=== PATIENT | female | born 1965 | race Caucasian/White ===

== ENCOUNTER 2017-01-18 15:11 | Emergency (ER) | payer OTHER ==
[~2017-01-18] VITALS: Ht 157.5 cm; Wt 96.8 kg
[~2017-01-18 15:11] MED LIST: LEVO50TA83 PO; LORA1TAB PO
[2017-01-18 15:14] VITALS: Ht 157.5 cm; Wt 96.8 kg
--- NOTE | 2017-01-18 15:43 | ERD ---
ER Documentation Chief Complaint Chief Complaint Complains of lower pelvic pain x 3 days HPI This is a 51-year-old female who presents to the emergency department today complaining of heavy vaginal bleeding that started last night. Patient states that in May she had a Nexplanon implant as she was having some heavy periods and it may have it removed as it was not working for her. She states that her last menstrual period was December 16. She states that she took ibuprofen last night but has a lot of pelvic pain. She states that she has been having to use 2 pads every 30 minutes. States that she does not currently have an BUSINESS DEVELOPMENT MANAGER at this time. States she does have some mild pain with urination. States she also has some back pain. Denies any fevers or chills ROS All systems reviewed and are negative except as per history of present illness. Medications Home Meds Active Scripts Acetaminophen* (Tylophen*) 500 Mg Capsule, 1 CAP PO Q6H Y for PAIN AND OR ELEVATED TEMP, #30 CAP Prov:CHARLEY ARZATE PA-C 01/18/17 Naproxen* (Naprosyn*) 500 Mg Tablet, 500 MG PO BID Y for PAIN AND/OR INFLAMMATION, #30 TAB Prov:CHARLEY ARZATE PA-C 01/18/17 Lorazepam* (Lorazepam*) 1 Mg Tablet, 1 MG PO Q8H Y for ANXIETY, #20 Prov:JEANNETTE SANCHEZ 10/11/14 Reported Medications Levothyroxine Sodium* (Synthroid*) 50 Mcg Tablet, 50 MCG PO DAILY 10/09/12 Allergies Allergies: Coded Allergies: No Known Allergy (Unverified , 10/10/14) PMhx/Soc History of Surgery: Yes (removal of kidney stone, TUBAL LIGATION, BLADDER SURGERY) Anesthesia Reaction: No Hx Neurological Disorder: No Hx Respiratory Disorders: No Hx Cardiac Disorders: Yes (HEART MURMUR) Hx Psychiatric Problems: No Hx Miscellaneous Medical Probl: Yes (HYPOTHYROID) Hx Alcohol Use: No Hx Substance Use: No Hx Tobacco Use: No Physical Exam Vitals Vital Signs Date Time Temp Pulse Resp B/P Pulse Ox O2 Delivery O2 Flow Rate FiO2 01/18/17 15:14 98.6 80 20 136/77 98 Physical Exam Const: obese, NAD Head: Atraumatic Eyes: Normal Conjunctiva ENT: Normal External Ears, Nose and Mouth. Neck: Full range of motion..~ No meningismus. Resp: Clear to auscultation bilaterally Cardio: Regular rate and rhythm, no murmurs Abd: Soft, pelvic pain. No tenderness to McBurney's. No upper abdominal pain., non distended. Normal bowel sounds Skin: No petechiae or rashes Back: No midline or flank tenderness Ext: No cyanosis, or edema Neur: Awake and alert Psych: Normal Mood and Affect Result Diagram: 01/18/17 1626 01/18/17 1626 Results 24 hrs Laboratory Tests Test 01/18/17 16:10 01/18/17 16:26 Urine Color YELLOW Urine Clarity SLIGHTLY CLOUDY Urine pH 5.0 Urine Specific [place] 1.018 Urine Ketones NEGATIVEmg/dL Urine Nitrite NEGATIVEmg/dL Urine Bilirubin NEGATIVEmg/dL Urine Urobilinogen NEGATIVEmg/dL Urine Leukocyte Esterase NEGATIVELeu/ul Urine Microscopic RBC > 182/HPF Urine Microscopic WBC 0/HPF Urine Hemoglobin 3+mg/dL Urine Glucose NEGATIVEmg/dL Urine Total Protein 1+mg/dl White Blood Count 8.110^3/ul Red Blood Count 4.3610^6/ul Hemoglobin 13.2g/dl Hematocrit 40.6% Mean Corpuscular Volume 93.1fl Mean Corpuscular Hemoglobin 30.3pg Mean Corpuscular Hemoglobin Concent 32.5g/dl Red Cell Distribution Width 11.9% Platelet Count 61772^3/UL Mean Platelet Volume 11.3fl Neutrophils % 65.2% Lymphocytes % 25.7% Monocytes % 7.3% Eosinophils % 1.1% Basophils % 0.5% Nucleated Red Blood Cells % 0.0/100WBC Neutrophils # 5.310^3/ul Lymphocytes # 2.110^3/ul Monocytes # 0.610^3/ul Eosinophils # 0.110^3/ul Basophils # 0.010^3/ul Nucleated Red Blood Cells # 0.010^3/ul Sodium Level 142mmol/L Potassium Level 4.6mmol/L Chloride Level 105mmol/L Carbon Dioxide Level 29mmol/L Anion Gap 13 Blood Urea Nitrogen 17mg/dl Creatinine 0.77mg/dl Glucose Level 94mg/dl Calcium Level 9.1mg/dl Total Bilirubin 0.5mg/dl Direct Bilirubin 0.00mg/dl Indirect Bilirubin 0.5mg/dl Aspartate Amino Transf (AST/SGOT) 15IU/L Alanine Aminotransferase (ALT/SGPT) 27IU/L Alkaline Phosphatase 57IU/L Total Protein 6.9g/dl Albumin 4.0g/dl Globulin 2.90g/dl Albumin/Globulin Ratio 1.37 Lipase 96U/L Current Medications Medications (Trade) Dose Ordered Sig/Kayla Route PRN Reason Start Time Stop Time Status Last Admin Dose Admin Ketorolac Tromethamine (Toradol) 30 mg ONCE STAT IV 01/18/17 15:53 01/18/17 15:55 DC 01/18/17 16:18 DIAGNOSTIC IMAGING REPORT Patient: ZOË BUSH : 1965 Age: 51 Sex: F MR #: [id number] DOS: 01/18/17 0000 Ordering MD: CHARLEY ARZATE PA-C Location: [facility] Room/Bed: PROCEDURE: Ultrasound pelvis. CLINICAL INDICATION: Pelvic pain and menorrhagia. TECHNIQUE: Multiple sonographic images of the pelvis were obtained utilizing a transabdominal and transvaginal technique. COMPARISON: CT dated 07/30/2014. FINDINGS: Uterus: 10.0 x 5.1 x 5.2 cm. Heterogeneous in echogenicity with multiple fibroids, the largest in the posterior body measuring 2 cm. Endometrium: 8 mm in thickness. Unremarkable in appearance. Right ovary: Not identified. Left ovary: 4.7 x 2.9 x 4.1 cm. Cystic lesion with diffuse low level internal echoes measuring 3.6 x 2.6 x 3.5 cm. Normal blood flow. Adnexa: No masses or sonographic abnormality. Free fluid: None. IMPRESSION: 1. Leiomyomatous uterus. 2. Left ovarian lesion measuring 3.6 cm which may reflect a hemorrhagic cyst or endometrioma. Follow-up ultrasound in 6 or 12 weeks is recommended. Follow- up prior to that time as clinically warranted. RPTAT: HLBP .Yousuf Ennis MD, Date Time Electronically viewed and signed by .Yousuf Ennis MD, MD on 01/18/2017 17:11 .P/ CC: CHARLEY ARZATE PA-C Procedures/[facility] This is a 51-year-old female who presents to the emergency department today complaining of heavy vaginal bleeding that started last night. Patient has been having irregular periods for quite some time now and had had a what patient appears to describe the Nexplanon implant in her arm that was removed in July. Patient had diffuse lower pelvic pain on physical exam and therefore did obtain laboratory workup as well as a pelvic ultrasound. Laboratory workup shows no elevated white blood cell count. She is not anemic. Her hemoglobin is 13.2. Her platelets are within normal limits. Electrolytes are within normal limits. Glucose is within normal limits. Liver enzymes are within normal limits. Lipase is within normal limits. UA is negative for infection. There are greater than 182 red blood cells. urine test is negative Pelvic US shows a leiomyomatosis uterus. There is a left ovarian lesion measuring 3.6 cm which may reflect a hemorrhagic cyst or endometrioma. A follow -up ultrasound in 6-12 weeks is recommended. There are no adnexal masses. There is no free fluid. There are multiple fibroids the largest measuring 2 cm. Symptoms at this time is consistent with pelvic pain and heavy vaginal bleeding likely secondary to fibroids. Low suspicion for ectopic , tubo- ovarian abscess, ovarian torsion, acute surgical abdomen. Patient indicated that she was going through several pads an hour however her hemoglobin is well within normal limits and there is no indication for transfusion at this time. Patient was given Toradol here in the emergency department and reported feeling significantly better. Patient was given a prescription for Naprosyn and Tylenol for home. I have explained all results to the patient and her . I have explained to her that she does need to make an appointment with her primary care doctor for referral to BUSINESS DEVELOPMENT MANAGER. Patient had been unhappy with her previous BUSINESS DEVELOPMENT MANAGER have given her a list of resources. At this time the patient is stable for discharge and outpatient management. Patient should follow up with their PCP in the next 1-2 days. They may return to the emergency department sooner for any persistent or worsening of symptoms. Patient understood and agreed with the plan. Discussed the patient with Dr. Jarrett and he is in agreement with the paln. Departure Diagnosis: Primary Impression: Pelvic pain Additional Impression: Fibroids Uterine leiomyoma location: unspecified location Qualified Code: D25.9 - Uterine leiomyoma, unspecified location Condition: CHARLEY Alatorre PA-C Jan 18, 2017 15:43
[2017-01-18] MEDS ORDERED: KETOROLAC 30 MG INJ IV STA (15:53)
[2017-01-18 16:37] LABS: BASOPHILS % 0.5 % (0.0-2.0); EOSINOPHILS # 0.1 10^3/ul (0.0-0.5); EOSINOPHILS % 1.1 % (0.0-7.0); HEMATOCRIT 40.6 % (37.0-47.0); HEMOGLOBIN 13.2 g/dl (12.0-16.0); LYMPHOCYTES # 2.1 10^3/ul (0.8-2.9); LYMPHOCYTES % 25.7 % (15.0-51.0); MEAN CORPUSCULAR HEMOGLOBIN 30.3 pg (29.0-33.0); MEAN CORPUSCULAR HGB CONC 32.5 g/dl (32.0-37.0); MEAN CORPUSCULAR VOLUME 93.1 fl (82.0-101.0); MEAN PLATELET VOLUME 11.3 fl (7.4-10.4); MONOCYTE # 0.6 10^3/ul (0.3-0.9); MONOCYTES % 7.3 % (0.0-11.0); NEUTROPHIL # 5.3 10^3/ul (1.6-7.5); NEUTROPHILS % 65.2 % (39.0-77.0); PLATELET COUNT 245 10^3/UL (140-415); RED BLOOD COUNT 4.36 10^6/ul (4.20-5.40); RED CELL DISTRIBUTION WIDTH 11.9 % (11.5-14.5); WHITE BLOOD COUNT 8.1 10^3/ul (4.8-10.8)
[2017-01-18 16:47] LABS: ADD UMIC YES; UR ASCORBIC ACID 40 mg/dL (NEGATIVE); UR BILIRUBIN (Dip) NEGATIVE (NEGATIVE); UR BLOOD (Dip) 3+ mg/dL (NEGATIVE); UR CLARITY SLIGHTLY CLOUDY (CLEAR); UR COLOR YELLOW (YELLOW); UR GLUCOSE (Dip) NEGATIVE (NEGATIVE); UR KETONES (Dip) NEGATIVE (NEGATIVE); UR LEUKOCYTE ESTERASE (Dip) NEGATIVE Leu/ul (NEGATIVE); UR NITRITE (Dip) NEGATIVE (NEGATIVE); UR RBC > 182 /HPF (0-5); UR SPECIFIC GRAVITY (Dip) 1.018 (1.003-1.030); UR TOTAL PROTEIN (Dip) 1+ mg/dl (NEGATIVE); UR UROBILINOGEN (Dip) NEGATIVE (NEGATIVE)
[2017-01-18 16:59] LABS: ALBUMIN/GLOBULIN RATIO 1.37; BILIRUBIN,INDIRECT 0.5 mg/dl (0-1.1); BILIRUBIN,TOTAL 0.5 mg/dl (0.2-1.3); CALCIUM 9.1 mg/dl (8.4-10.2); CREATININE 0.77 mg/dl (0.44-1.00); POTASSIUM 4.6 mmol/L (3.5-5.1); TOTAL PROTEIN 6.9 g/dl (6.1-8.1)
--- NOTE | 2017-01-18 17:12 | RADRPT ---
PROCEDURE: Ultrasound pelvis. CLINICAL INDICATION: Pelvic pain and menorrhagia. TECHNIQUE: Multiple sonographic images of the pelvis were obtained utilizing a transabdominal and transvaginal technique. COMPARISON: CT dated 07/30/2014. FINDINGS: Uterus: 10.0 x 5.1 x 5.2 cm. Heterogeneous in echogenicity with multiple fibroids, the largest in th e posterior body measuring 2 cm. Endometrium: 8 mm in thickness. Unremarkable in appearance. Right ovary: Not identified. Left ovary: 4.7 x 2.9 x 4.1 cm. Cystic lesion with diffuse low level internal echoes measuring 3.6 x 2.6 x 3.5 cm. Normal blood flow. Adnexa: No masses or sonographic abnormality. Free fluid: None. IMPRESSION: 1. Leiomyomatous uterus. 2. Left ovarian lesion measuring 3.6 cm which may reflect a hemorrhagic cyst or endometrioma. Follo w-up ultrasound in 6 or 12 weeks is recommended. Follow-up prior to that time as clinically warrante d. RPTAT: HLBP .Yousuf Ennis MD, MD Date Time Electronically viewed and signed by .Yousuf Ennis MD, MD on 01/18/2017 17:11 .P/
[2017-01-18] MEDS ORDERED: ACET500C5 PO (18:07)
[2017-01-18] MEDS ORDERED: NAPR-260 PO (18:07)
[2017-01-18 18:15] VITALS: BP 126/68; PULSE 78; RESP 16; TEMP 97.4
== END 2017-01-18 18:18 | disposition home or self-care (01) ==
LOC: FTE 15:11
DX: D25.9 Leiomyoma of uterus, unspecified (principal); E03.9 Hypothyroidism, unspecified
CPT/HCPCS: 76830; 76856; 80053; 81001; 83690; 85025; 96374; J1885; Z7502